=== PATIENT | female | born 1975 | race Caucasian/White ===

== ENCOUNTER 2019-11-26 11:39 | Day surgery (SDC) | payer OTHER ==
[~2019-11-26] VITALS: Ht 160 cm; Wt 65.9 kg
--- NOTE | ~2019-11-26 | OP ---
PATIENT NAME: MARIA TERESA JOYCE MEDICAL RECORD: [id number] :71 LOCATION:D.CAT ADMISSION DATE: SURGEON: ALLIE RENO MD DATE OF OPERATION: 11/26/2019 PREOPERATIVE DIAGNOSIS: Sick sinus syndrome with pauses. POSTOPERATIVE DIAGNOSIS: Sick sinus syndrome with pauses. PROCEDURE: 1. Left subclavian vein dual lead pacemaker placement. 2. Fluoroscopic interpretation. SURGEON: Allie Reno MD CO-SURGEON: Brett Fowler MD REPORT OF PROCEDURE: The patient's left chest was prepped and draped in sterile fashion. A 20 mL of 1% lidocaine with epinephrine was infused into the surrounding tissues. A skin incision was made on the left superior lateral chest and the subcutaneous pouch was made over the pectoral fascia. Needle was used to cannulate the left subclavian vein and guidewires were advanced times 2. Fluoro was used to note that the wires were in good position in the venous system. Dilator trocar devices were placed over the wires and the wires and dilators were removed. The leads were advanced through the trocars until they rested in the superior vena cava. At this point, Dr. Fowler positioned the leads appropriately in the atrium and ventricle. Once the leads were noted to be functioning appropriately, then they were sutured into place with 2-0 TiCron. The leads were affixed to the pacemaker, which was placed into the subcutaneous pouch and sutured down to the pectoral fascia with a single interrupted 2-0 Ti-Cron. The wound was then irrigated out with antibiotic solution. The subcutaneous tissues were reapproximated with interrupted 3-0 Vicryl and the skin was closed with running subcutaneous 5-0 Monocryl. COMPLICATIONS: None. CONDITION: Stable. ANESTHESIA: Local MAC. BLOOD LOSS: Minimal. TRANSINT:[id number] Voice Confirmation ID: [id number] DOCUMENT ID: [id number] ALLIE RENO MD CC: [id number] DICTATION DATE: 11/26/19 1425 STUDIO TECHNICIAN VIDEO OPERATOR: 11/27/19 0040 [facility] 11/26/19 [facility] [address] [place] [address]
--- NOTE | ~2019-11-26 | HEMODYNAMI ---
PATIENT:MARIA TERESA JOYCE MEDICAL RECORD: [id number] : 71 LOCATION:DCharlieCAT ADMISSION DATE: 11/26/19 Generatedon:11/26/201914:29 Patient name: MARIA TERESA JOYCE Patient #: [id number] SSN: D OB: 1975 Date of study: 11/26/2019 Page: Of Hemodynamic Procedure Report Patient Data Patient Demographics Procedure consent was obtained First Name: MARIA TERESA Gender: Female Last Name: MARIA DEL CARMEN : 1975 Middle Initial: MELITON Age: 43 year(s) Patient #: [id number] Race: Additional ID: [id number] Contact details [address]: [address] [place] [address] State: [place] City: [place] Zip code: [address] Past Medical History Allergies Allergen Reaction Date Comments Reported Other allergy 11/26/2019 PCN/LATEX Admission Admission Data Admission Date: 11/26/2019 Admission Time: 11:39 Arrival Date: 11/26/2019 Arrival Time: 0:00 Height (in.): 63 BSA: 1.69 (m2) Height (cm.): 160.02 BMI: 25.69 (kg/m2) Weight (lbs.): 145 Weight (kg.): 65.77 Lab Results Lab Result Date: 11/26/2019 Lab Result Time: 0:00 CBC Name Units Result Min Max Hematocrit % 41 -*(----)-- 42 54 Hemoglobin g/dl 13.7 --(*---)-- 13.5 17.5 Procedure Procedure Types Cath Procedure Diagnostic Procedure PPM/ICD PPM Dual Implant Sedation Charges Moderate Sedation up to 30 minutes Procedure Description Procedure Date Procedure Date: 11/26/2019 Procedure Start Time: 13:58 Procedure End Time: 14:27 Procedure Staff Name Function Brett Bailey MD Performing Physician Rony Simmons MD Assisting physician No Harp RT Monitor Cleo Reddy RT Scrub Ceasar Del Real RN Nurse Indication Sick Sinus Syndrome Procedure Data Cath Procedure Fluoroscopy Diagnostic fluoroscopy Total fluoroscopy Time: 1.4 time: 1.4 min min Diagnostic fluoroscopy Total fluoroscopy dose: 24 dose: 24 mGy mGy Estimated blood loss: 10 ml Procedure Complications No complications Procedure Medications Medication Administration Route Dosage Oxygen etCO2 Nasal cannula 2 l/min Lidocaine 1% added to field 20 Vancomycin I.V.P.B 1 g Vancomycin Topical 1 g Irrigation Versed I.V. 2 mg Fentanyl I.V. 50 mcg Versed I.V. 2 mg Hemodynamics Rest BSA: 1.69 (m2) O2 Consumption: Estimated: 130.04 (ml/min) O2 Consumption indexed : Estimated:76.95 (ml/min/m) Heart Rate: 11 (bpm) Snapshots Pre Cath Intra NCS Post Cath Vital Signs Time Heart Resp SPO2 etCO2 NIBP (mmHg) Rhythm Pain Sedation Rate (ipm) (%) (mmHg) Status Level (bpm) 13:52:24 79 19 98 0 Measuring NSR (Missing) 10(A) 13:54:57 75 16 100 0 127/77(100) NSR (Missing) 10(A) 13:59:56 78 11 99 0 135/75(114) NSR (Missing) 10(A) 14:04:04 80 14 99 0 131/81(94) NSR (Missing) 10(A) 14:08:14 71 25 100 0 126/75(116) NSR (Missing) 10(A) 14:12:24 75 21 100 0 133/67(84) NSR (Missing) 10(A) 14:16:30 82 21 100 0 142/87(113) NSR (Missing) 10(A) 14:20:31 79 14 100 0 131/85(104) NSR (Missing) 10(A) 14:24:37 110 16 99 0 124/86(97) NSR (Missing) 10(A) Medications Time Medication Route Dose Verified Delivered Reason Notes Effectiv eness by by 13:37:10 Oxygen etCO2 2 Brett Kekeie used for Nasal l/min [facility] Speedy Del Real shirt hemmer cannula 13:37:20 Lidocaine added 20ml Brett Uribe for local 1% to vial St Speedy Simmons MD anesthetic field x2 13:37:37 Vancomycin I.V.P.B 1 g Brett Mcdonough used for [facility] Speedy Del Real shirt hemmer 13:37:44 Vancomycin Topical 1 g Brett Daviesie used for Irrigation St Speedy Del Real RN procedure 13:55:01 Versed I.V. 2 mg Brett Mcdonough for [facility] Speedy Del Real RN sedation 13:55:07 Fentanyl I.V. 50 Bertt Mcdonough for mcg [facility] Speedy Del Real RN sedation 14:03:11 Versed I.V. 2 mg Brett Mcdonough for [facility] Speedy Del Real RN sedation Procedure Log Time Note 12:17:58 Informed consent obtained and on chart 12:20:03 Indication : Sick Sinus Syndrome 12:20:22 Arrival Date: 11/26/2019 12:00:00 AM 12:53:33 Patient Height : 63 inches 12:53:42 Patient Weight : 145 lbs 12:54:25 Medtronic traveling representative QUITA ALMENDAREZ present for procedure. 12:54:51 Procedure Status PPM/ Gen Change/ Lead Revision/ Temp. 12:56:27 Time tracking: Regular hours (M-F 7:00 - 5:00) 12:57:21 Patient allergic to Other allergyPCN/LATEX 12:58:46 Lab Result : Hemoglobin 13.7 g/dl 12:58:46 Lab Result : Hematocrit 41 % 13:33:04 Cleo Reddy RT(R) sent for patient. Start room use. 13:35:58 Patient NPO since Midnight. 13:36:00 Family unavailable. 13:36:01 Pre-procedure instructions explained to patient. 13:36:02 Pre-op teaching completed and patient verbalized understanding. 13:36:10 H&P Date Dictated: 11/13/2019 Within 30 days and on chart.. 13:36:22 HCG/Urine : completed and on chart, negative 13:37:10 Oxygen 2 l/min etCO2 Nasal cannula was administered by Ceasar Del Real RN; used for procedure; Verbal order read back and verified. 13:37:12 Patient received from Pre/Post Procedure Room to CCL 3 Alert and oriented. Tansferred to table in Supine position. 13:37:14 Warm blankets applied, and eric hugger turned on for patient comfort. 13:37:14 Correct patient and procedure confirmed by team. 13:37:14 ECG and BP/O2 sat monitors applied to patient. 13:37:19 Is the patient allergic to Iodine/contrast media? No. 13:37:20 Lidocaine 1% 20ml vial x2 added to field was administered by Rony Simmons MD; for local anesthetic; Verbal order read back and verified. 13:37:21 Was the patient premedicated? N/A 13:37:23 Is patient on blood thinner?No 13:37:26 Patient diabetic? No. 13:37:27 If diabetic: On Metformin? N/A 13:37:30 ----Pre-sedation anethsthesia assessment.---- 13:37:33 Previous problem with sedation/anesthesia? No ? 13:37:37 Vancomycin 1 g I.V.P.B was administered by Ceasar Del Real RN; used for procedure; Verbal order read back and verified. 13:37:40 Use device set SHADIA PPM 13:37:44 Vancomycin Irrigation 1 g Topical was administered by Ceasar Del Real RN; used for procedure; Verbal order read back and verified. 13:50:34 Vital chart was started 13:50:36 Full Disclosure recording started 13:50:38 Baseline sample Acquired. 13:50:46 Snore? Yes 13:50:48 Sleep apnea? No 13:50:49 Deviated septum? No 13:50:50 Opens mouth fully? Yes 13:50:51 Sticks out tongue? Yes 13:50:54 Airway obstruction? No ? 13:50:56 Dentures? No ? 13:51:03 IV patent on arrival in left antecubital with 0.9% NaCl at [facility]. 13:51:06 Lab results completed and on chart. 13:51:14 Left chest area was prepped with chlora-prep and draped in sterile fashion 13:51:15 Alarms reviewed by R. N. 13:51:16 Sharps counted by scrub and verified by R.N. 13:51:19 Baseline sample Acquired. 13:52:45 2-0 Ticron Multipack ([id number]) opened to sterile field. 13:52:46 3-0 Vicryl Single Pack [id number] opened to sterile field. 13:52:46 5-0 Monocryl PS2 [id number] opened to sterile field. 13:52:47 Cautery Tip Buckle Frame Shaper opened to sterile field. 13:52:48 Cautery Pushbutton Pencil opened to sterile field. 13:52:48 Mepilex Dressing (244994) opened to sterile field. 13:54:15 Physician arrived 13:54:15 --------ALL STOP TIME OUT------ 13:54:16 Final Timeout: patient, procedure, and site verified with staff and physician. All members of the team are in agreement. 13:54:20 Left chest site verified by team. 13:54:24 Fire Safety Assessment: A--An alcohol-based skin anteseptic being used preoperatively., C--Open oxygen or nitrous oxide is being used., D--An ESU, laser, or fiber-optic light is being used. 13:54:28 Physical assessment completed. ASA score P 2 - A patient with mild systemic disease as per Brett Bailey MD. 13:54:45 Sedation plan: IV Moderate Sedation Medication:Versed, Fentanyl 13:55:01 Versed 2 mg I.V. was administered by Ceasar Del Real RN; for sedation; Verbal order read back and verified. 13:55:07 Fentanyl 50 mcg I.V. was administered by Ceasar Del Real RN; for sedation; Verbal order read back and verified. 13:56:16 Procedure started. 13:57:07 Pre sharps counted by scrub and verified by RN: Sutures: 7; Sponges: 5; Stick needles: 2; Skin needles: 2; Blade: 1; Cautery: 1 13:58:14 Grounding pad site free from injury. 13:58:17 Grounding pad site Left thigh. 13:58:28 Lidocaine 1% was administered to left subclavicular area by Rony Simmons MD . 13:59:00 Incision made to left subclavicular area. 14:00:00 Medtronic 4074-52 PPM Lead opened to sterile field. 14:00:00 Medtronic 4574-45 PPM Lead opened to sterile field. 14:01:42 Generator pocket made/opened. 14:03:11 Versed 2 mg I.V. was administered by Ceasar Del Real RN; for sedation; Verbal order read back and verified. 14:05:05 Right subclavian vein accessed with 7Fr Peel Away Sheath. 14:05:09 Left subclavian vein accessed with 7Fr Peel Away Sheath. 14:06:24 Ventricular lead inserted and advanced. 14:07:32 Atrial lead inserted and advanced. 14:08:08 Ventricular lead positioned. 14:09:40 Ventricular lead tested. 14:10:36 Atrial lead positioned. 14:10:45 Atrial lead tested. 14:12:35 Peel-a-way sheath was split and removed. 14:13:01 Ventricular lead attachment was completed with 2-0 ticron. 14:13:06 Atrial lead attachment was completed with 2-0 ticron. 14:14:00 Medtronic Advisa MRI PPM Dual Generator [id number] opened to sterile field. 14:14:25 PPM Dual was attached to lead(s) and inserted into pocket. 14:17:41 PPM Dual was inserted subcutaneously to left chest. 14:18:16 Generator was sutured in place with 2-0 ticron. 14:18:21 Device pocket was irrigated with Vancomycin. 14:18:57 Subcutaneous closure was completed with 3-0 vicryl. 14:19:30 Skin closure was completed with 5-0 monocryl. 14:22:54 Post sharps counted by scrub and verified by RN: Sutures: 2; Sponges: 5; Stick needles: 2; Skin needles: 2; Blade: 1; Cautery: 1 14:23:22 Lt Chest incision was dressed with Mepilex dressing. 14:25:09 Immobilizer Large opened to sterile field. 14:25:16 Procedure ended.(Physican Out) 14:25:36 Fluoroscopy time 01.40 minutes. 14:25:42 Fluoroscopy dose: 24 mGy 14:25:42 Flurop Dose total: 24 14:25:47 Dose Area Product 2620 mGy/cm. 14:25:55 Sharps counted by scrub and verified by R.N. 14:26:05 Post-procedure physical assessment completed. ASA score P 2 - A patient with mild systemic disease as per Brett Bailey MD. 14:26:09 Post procedure rhythm: sinus rhythm 14:26:12 Estimated blood loss: 10 ml 14:26:14 Post procedure instruction explained to patient.Patient verbalizes understanding. 14:26:14 Patient needs reinforcement of post procedure teaching. 14:26:31 Procedure type changed to Cath procedure, Diagnostic procedure, PPM/ICD, PPM Dual Implant, Sedation Charges, Moderate Sedation up to 30 minutes 14:26:54 Procedure and supply charges have been captured, reviewed, submitted and are correct. 14:26:58 Procedure Complication : No complications 14:27:01 Vital chart was stopped 14:27:06 Operative report dictated upon procedure completion. 14:27:06 See physician's report for complete and final results. 14:27:08 Report given to Pre/Post Procedure Room. 14:27:12 Patient transfered to Pre/Post Procedure Room with Stretcher. 14:27:14 Procedure ended. 14:27:14 Full Disclosure recording stopped 14:28:09 End room use (Document Last) 14:28:20 End room use (Document Last) 14:28:45 End room use (Document Last) Device Usage Item Name Manufacture Quantity Catalog Hospital Part Current Minimal Lot# / Number Charge Number Stock Stock Serial# Code 2-0 Ticron Ethicon 8 [id number] 867136 21873 [id number] 5 Multipack ([id number]) 3-0 Vicryl Ethicon 1 [id number] 032814 528226 [id number] 5 Single Pack [id number] 5-0 Monocryl Ethicon 1 Y495G 303637 994191 228182 5 PS2 Y495G Cautery Tip Microtek 1 [id number] 638240 451958 797559 5 Buckle Frame Sh[employer] Cautery Microtek 1 [id number] 563282 17558 551976 5 Pushbutton [employer] Pencil Mepilex Cardinal 1 255014 780330 356447 351101 5 Dressing Health ([id number]) Medtronic Medtronic 1 4074-52 042991 268119 304545 5 4074-52 PPM [id number] Lead EXP : 12/26/2019 Medtronic Medtronic 1 4574-45 964560 088884 917314 5 4574-45 PPM [id number] Lead EXP: 05/18/2021 Medtronic Medtronic 1 [id number] 702642 106560 [id number] 5 Advisa MRI [id number] PPM Dual EXP: Generator 03/28/2021 [id number] Immobilizer Cardinal 1 [id number] 029971 131832 [id number] 5 [facility] Signature Audit Sewell Stage Time Signature Unsigned Intra-Procedure 11/26/2019 No Harp 2:28:20 PM RT(R) Intra-Procedure 11/26/2019 Ceasar Del Real RN 2:28:45 PM Intra-Procedure 11/26/2019 Brett Wallis 2:28:59 PM Speedy ALVAREZ [place] [address] [facility] [place] [address]
[2019-11-26] MEDS ORDERED: NEXIUM40 MG PO (12:17)
[2019-11-26] MEDS ORDERED: CYCLOBENZAPRINE5 MG PO (12:17)
[2019-11-26] MEDS ORDERED: LEXAPRO10 MG PO (12:17)
[2019-11-26] MEDS ORDERED: CRESTOR20 MG PO (12:18)
[2019-11-26] MEDS ORDERED: NORVASC5 MG PO (12:18)
[2019-11-26] MEDS ORDERED: LISINOPRIL5 MG PO (12:19)
[2019-11-26] MEDS ORDERED: HYDROCODON-ACE1 EA10 PO (12:19)
[2019-11-26] MEDS ORDERED: FLUTICASONE PRO16 GM NASAL (12:20)
[2019-11-26] MEDS ORDERED: LEVOCETIRIZI (12:22)
[2019-11-26 12:42] VITALS: BP 143/85; Ht 160 cm; Wt 65.9 kg
[2019-11-26 12:51] LABS: HEMOGLOBIN 13.7 g/dL (12-16); MCH 35.1 pg (26.0-34.0); MCHC 33.4 g/dL (31.0-37.0); MCV 105.1 fL (80.0-100.0); MEAN PLATELET VOLUME 9.9 fL (7.4-10.4); RBC 3.9 10x6/uL (4.00-5.40); RDW 14.6 % (11.5-14.5); WBC 8.5 10x3/uL (4.8-10.8)
[2019-11-26 12:57] LABS: CALC OSMOLALITY 272 mosm/kg (275-300); CALCIUM 9.2 mg/dL (8.5-10.1); CARBON DIOXIDE 27.1 mmol/L (21.0-32.0); CHLORIDE - SERUM 102 mmol/L (98-107); CREATININE - SERUM 0.7 mg/dL (0.6-1.3); GLUCOSE 100 mg/dL (74-106); POTASSIUM - SERUM 4.1 mmol/L (3.5-5.1); SODIUM 137 mmol/L (136-145); UREA NITROGEN 9 mg/dL (7-18); eGFR NON AFRICAN AMERICAN > 90 mL/min (90-120)
[2019-11-26 12:58] LABS: APTT 29.8 SECONDS (22.8-39.4); INR 0.94 (0.85-1.17); PROTIME 12.5 SECONDS (11.6-15.0)
[2019-11-26 13:02] LABS: HCG SERUM NEGATIVE (NEGATIVE)
--- NOTE | 2019-11-26 14:40 | NUR ---
PT REC'D TO ROOM 3 VIA STRETCHER FROM PROFILING MACHINE OPERATOR. MONITORS ESTAB. FRIEND AT BS. SEE VIDEO MACHINES MECHANIC, ALARMS ON AND C/L IN REACH.
--- NOTE | 2019-11-26 14:55 | NUR ---
L CHEST PPM SITE C/D/I. VSS. PT GIVEN SANDWICH AND DR. MCLAIN PER REQUEST. DENIES OTHER NEEDS. ALARMS ON AND C/L IN REACH.
--- NOTE | 2019-11-26 15:08 | NUR ---
PCXR DONE. L CHEST PPM SITE C/D/I. L ARM SLING IN PLACE. VSS. PT DENIES PAIN OR NEEDS. CM SR, OCC V-PACED, NO ECTOPY NOTED.
--- NOTE | 2019-11-26 15:30 | NUR ---
PT RESTING QUIETLY, VSS. CM - NSR, HR 83. PT DENIES NEEDS.. C/L IN REACH.
--- NOTE | 2019-11-26 15:51 | NUR ---
ALL DISCHARGE INSTRUCTIONS REVIEWED WITH PT, INCLUDING RESTRICTIONS, MEDS AND F/U APPT. PT VERBALIZES UNDERSTANDING. PIV D/C'D INTACT, DSG APPLIED.
--- NOTE | 2019-11-26 16:00 | NUR ---
PT ASSISTED UP TO GET DRESSED WITH L ARM IN SLING. PT TAKEN TO BR VIA WC ( L LEG IN IMMOBILIZER BOOT).
--- NOTE | 2019-11-26 16:15 | NUR ---
PT D/C'D TO PRIVATE VEHICLE WITH ALL BELONGINGS AND PAPERWORK.
--- NOTE | 2019-11-30 11:44 | OP ---
PATIENT NAME: MARIAA GANN MEDICAL RECORD: [id number] :71 LOCATION:D.CAT ADMISSION DATE: SURGEON: OLIVIER CABALLERO MD DATE OF OPERATION: 11/26/2019 INDICATION: Sick sinus syndrome with high degree AV block. SURGEON: Rony Simmons MD DESCRIPTION OF PROCEDURE: Left subclavian was cannulated via modified Seldinger technique via Dr. Simmons, first under fluoroscopic guidance, I placed the RV lead in the RV apex without difficulty. After adequate R waves and thresholds were obtained, again under fluoroscopic guidance, I placed the right atrial lead in right atrial appendage without difficulty. After adequate R waves and thresholds were obtained, the leads were attached to appropriate poles of the generator and the pocket was closed via Dr. Simmons. IMPRESSION: Successful lead portion of permanent pacemaker placement of Mariaa Gann. ESTIMATED BLOOD LOSS: Minimal. COMPLICATIONS: None. DISPOSITION: To the floor, stable. TRANSINT:[id number] Voice Confirmation ID: [id number] DOCUMENT ID: [id number] OLIVIER CABALLERO MD at 1144 CC: [id number] DICTATION DATE: 11/26/19 1423 QUARTZ ORIENTATOR: 11/27/19 0037 [facility] 11/26/19 [id number] [place] [address]
== END 2019-11-26 16:15 | disposition home or self-care (01) ==
LOC: D.CATH 11:39
PROVIDERS: ATTEND Internal Medicine Interventional Cardiology
DX: I49.5 Sick sinus syndrome (principal); R00.2 Palpitations; I25.10 Atherosclerotic heart disease of native coronary artery without angina pectoris